=== PATIENT | female | born 2000 | race Caucasian/White ===

== ENCOUNTER 2021-11-13 04:54 | Emergency (ER) | payer BC ==
[~2021-11-13] VITALS: Ht 167.6 cm; Wt 51.8 kg
[2021-11-13 05:02] VITALS: TEMP 99.5
[2021-11-13 05:28] LABS: HEMATOCRIT 39.6 % (37.0-47.0); HEMOGLOBIN 13.2 g/dl (12.5-16.0); MEAN CELL VOLUME 85 fl (80.0-100.0); MEAN CORPUSCULAR HEMOGLOBIN 28 pg (27-31); MEAN CORPUSCULAR HGB CONC 33 g/dl (33.0-37.0); MEAN PLATELET VOLUME 11.3 fl (7.4-10.4); PLATELET COUNT 215 K/mm3 (130-400); RED BLOOD COUNT 4.68 M/mm3 (4.10-5.30); REDCELL DISTRIBUTION WIDTH-CV 13.8 % (11.5-14.5)
[2021-11-13 05:47] LABS: ALBUMIN 4.1 gm/dL (3.5-5.0); BILIRUBIN,TOTAL 0.2 mg/dL (0.2-1.2); CALCIUM 8.7 mg/dL (8.4-10.2); CREATININE, serum 0.67 mg/dL (0.57-1.11); POTASSIUM 3.4 mmol/L (3.5-4.5); TOTAL PROTEIN 7.9 gm/dL (6.2-8.1)
[2021-11-13 06:06] LABS: TSH w REFLEX 1.38 uIU/mL (0.350-4.940)
[2021-11-13] MEDS ORDERED: KAPSPARGO SPRIN25 MG PO (06:32)
[2021-11-13] MEDS ORDERED: TOPROL XL 25MG25 MG PO (06:36)
[2021-11-13 06:39] LABS: EOSINOPHIL 2 % (0-4); LYMPHOCYTE 38 % (20.0-51.0); METAMYELOCYTE 2 % (0-0); NEUTROPHILS 48 % (42.0-75.2); PLATELET ESTIMATE NORMAL (NORMAL)
[2021-11-13 06:53] VITALS: BP 118/80; PULSE 107
== END 2021-11-13 06:53 | disposition home or self-care (01) ==
LOC: COL.ER 04:54
PROVIDERS: Personal Emergency Response Attendant
DX: I47.1 Supraventricular tachycardia (principal)
CPT/HCPCS: J0153; J7030